=== PATIENT | male | born 1945 | race Caucasian/White ===

== ENCOUNTER 2024-04-13 20:30 | Observation (INO) | payer MEDICARE ==
[~2024-04-13] VITALS: Ht 188 cm; Wt 96.2 kg
[2024-04-13 21:13] LABS: BASO # 0.1 K/mm3 (0.0-0.2); BASO % 1.1 % (0.0-2.0); EOS # 0.2 K/mm3 (0.0-0.7); EOS % 2.6 % (0.0-4.0); GRAN # 5.2 K/mm3 (1.4-6.5); GRAN % 62.2 % (42.2-75.2); HEMATOCRIT 37.4 % (42.0-52.0); HEMOGLOBIN 12.8 g/dl (13.5-18.0); LYMPH # 2.2 K/mm3 (1.2-3.4); LYMPH % 26.1 % (20.0-51.0); MEAN CELL VOLUME 88 fl (80.0-100.0); MEAN CORPUSCULAR HEMOGLOBIN 30 pg (27-31); MEAN CORPUSCULAR HGB CONC 34 g/dl (33.0-37.0); MEAN PLATELET VOLUME 9.9 fl (7.4-10.4); MONO # 0.7 K/mm3 (0.1-0.6); MONO % 7.8 % (1.7-9.3); PLATELET COUNT 288 K/mm3 (130-400); RED BLOOD COUNT 4.24 M/mm3 (4.20-5.60); REDCELL DISTRIBUTION WIDTH-CV 12.9 % (11.5-14.5)
[2024-04-13] MEDS ORDERED: LR 1,000 ML IV ONE ×3 (21:15→23:00)
[2024-04-13 21:27] LABS: ALBUMIN 3.6 g/dL (3.4-4.8); BILIRUBIN,TOTAL 0.7 mg/dL (0.2-1.2); CALCIUM 9.3 mg/dL (8.4-10.2); CREATININE, serum 2.2 mg/dL (0.72-1.25); POTASSIUM 4.1 mEq/L (3.5-4.5); TOTAL PROTEIN 7.5 g/dl (6.2-8.1)
[2024-04-13 21:37] LABS: TROPONIN-I 0.02 ng/mL (0.00-0.033)
[2024-04-13] MEDS ORDERED: Insulin Lispro (HumaLOG) SQ ONE (23:00)
[2024-04-13] MEDS ORDERED: Acetaminophen 325 MG TAB PO PRN (23:00)
[2024-04-13 23:11] LABS: PH 5.5 (5.0-8.5); URINE APPEARANCE CLEAR (CLEAR/HAZY); URINE BLOOD NEGATIVE (NEGATIVE); URINE COLOR YELLOW (YELLOW); URINE GLUCOSE 3+ (NEGATIVE); URINE KETONE NEGATIVE (NEGATIVE); URINE NITRATE NEGATIVE (NEGATIVE); URINE PROTEIN(semi-quant) NEGATIVE (NEGATIVE); URINE UROBILINOGEN 0.2 E.U/dL (0.2-1.0)
[2024-04-13 23:12] LABS: COLLECTION METHOD CLEAN CATCH
[2024-04-13] MEDS ORDERED: Dextrose (Glucose) 15 GM (4 x 3.75 GM) Chewable TABLET PACK PO PRN (23:15)
[2024-04-13] MEDS ORDERED: Dextrose 50% Water 25 GM/50 ML SYRINGE IV PRN (23:15)
[2024-04-13] MEDS ORDERED: Glucagon 1 MG VIAL IM PRN (23:15)
[2024-04-14] VITALS (12 sets, daily range): BP systolic 117–167; BP diastolic 41–89; PULSE 66–91; TEMP 98–99.1
[2024-04-14] MEDS ORDERED: Insulin Lispro (HumaLOG) SQ SCH
[2024-04-14] MEDS ORDERED: DESYREL DIVIDO150 M1 PO (00:09)
[2024-04-14] MEDS ORDERED: ACTOS30 MG PO (00:09)
--- NOTE | 2024-04-14 00:44 | NUR ---
RECIEVED REPORT FROM [facility] MAIN RN. PATIENT ARRIVED TO UNIT AROUND 0030. ALL BELONGINGS WITH PATIENT AT TIME OF TRANSFER. PATIENT AMBULATED TO BED. ORIENTED TO ROOM. CALL LIGHT WITHIN REACH.
[2024-04-14 07:11] LABS: BASO # 0.1 K/mm3 (0.0-0.2); EOS # 0.2 K/mm3 (0.0-0.7); EOS % 3.2 % (0.0-4.0); GRAN # 4.8 K/mm3 (1.4-6.5); GRAN % 65.6 % (42.2-75.2); LYMPH # 1.5 K/mm3 (1.2-3.4); MEAN CELL VOLUME 87 fl (80.0-100.0); MEAN CORPUSCULAR HGB CONC 35 g/dl (33.0-37.0); MEAN PLATELET VOLUME 9.8 fl (7.4-10.4); MONO # 0.7 K/mm3 (0.1-0.6); MONO % 9.8 % (1.7-9.3); PLATELET COUNT 231 K/mm3 (130-400); RED BLOOD COUNT 3.56 M/mm3 (4.20-5.60); REDCELL DISTRIBUTION WIDTH-CV 12.7 % (11.5-14.5)
[2024-04-14 07:12] LABS: HEMATOCRIT 30.9 % (42.0-52.0); HEMOGLOBIN 10.7 g/dl (13.5-18.0); MEAN CORPUSCULAR HEMOGLOBIN 30 pg (27-31)
[2024-04-14 07:26] LABS: CALCIUM 8.6 mg/dL (8.4-10.2); CREATININE, serum 1.63 mg/dL (0.72-1.25); POTASSIUM 3.8 mEq/L (3.5-4.5)
[2024-04-14] MEDS ORDERED: Famotidine 20 MG TAB PO SCH (09:00)
[2024-04-14 10:02] LABS: CALCIUM 8.5 mg/dL (8.4-10.2); CREATININE, serum 1.66 mg/dL (0.72-1.25)
[2024-04-14 10:15] LABS: CHOLESTEROL RISK RATIO 6.1
--- NOTE | 2024-04-14 12:34 | NUR ---
Data: Patient declined spiritual care visit offered during [facility] rounds. Assessment: None. Patient declined. Plan of Care: Chaplains will remain available as requested while Patient is admitted to this hospital.
[2024-04-14 12:51] LABS: CALCIUM 8.8 mg/dL (8.4-10.2); CREATININE, serum 1.7 mg/dL (0.72-1.25); POTASSIUM 3.8 mEq/L (3.5-4.5)
[2024-04-14] MEDS ORDERED: Insulin Glargine-ygfn (Lantus) SQ ONE (13:00)
[2024-04-14] MEDS ORDERED: NS 1,000 ML IV SCH (13:00)
--- NOTE | 2024-04-14 14:21 | NUR ---
INSTRUCTIONAL MANAGER met with pt bedside to complete initial consult. INSTRUCTIONAL MANAGER Ellen attempted to complete consult earlier but was declined. Pt recently moved to [place] from [facility] to be with his son, Wesley. Pt filled out DPOA form who named Wesley as DPOA. Paperwork put in chart and 2 copies were given to pt. Pt has not established PCP nor pharmacy yet. Pt had no preferences for pharmacy. Pt was difficult to speak with and avoided most questions. Pt uses no DME and no assistive devices at home. Pt has no concerns and declined the need for additional resources. D/C: Home w\ son
[2024-04-14 16:18] LABS: CALCIUM 8.7 mg/dL (8.4-10.2); CREATININE, serum 1.94 mg/dL (0.72-1.25); POTASSIUM 4.3 mEq/L (3.5-4.5)
[2024-04-14] MEDS ORDERED: Insulin Lispro (HumaLOG) IV ONE (23:45)
[2024-04-15] VITALS (10 sets, daily range): BP systolic 134–158; BP diastolic 54–72; PULSE 71–87; TEMP 98.4–98.9
--- NOTE | 2024-04-15 05:44 | NUR ---
THE PATIENT REFUSED HIS 4 AM VITALS AND BLOOD GLUCOSE CHECK. ALSO THE PATIENT REFUSED HIS LAB DRAW THIS MORNING WELL. THE PATIENT IS NOT WILLING TO LISTEN TO REASON AT THIS TIME. SIMPLE AND CONCISE REASONING WAS USED AND THE PATIENT ABSOLUTELY REFUSED.
[2024-04-15 07:52] LABS: BASO # 0.1 K/mm3 (0.0-0.2); BASO % 1.3 % (0.0-2.0); EOS # 0.3 K/mm3 (0.0-0.7); EOS % 4.9 % (0.0-4.0); GRAN # 4.1 K/mm3 (1.4-6.5); HEMOGLOBIN 11.2 g/dl (13.5-18.0); LYMPH # 1.7 K/mm3 (1.2-3.4); LYMPH % 24.8 % (20.0-51.0); MEAN CELL VOLUME 88 fl (80.0-100.0); MEAN CORPUSCULAR HEMOGLOBIN 30 pg (27-31); MEAN CORPUSCULAR HGB CONC 35 g/dl (33.0-37.0); MEAN PLATELET VOLUME 9.6 fl (7.4-10.4); MONO # 0.5 K/mm3 (0.1-0.6); MONO % 7.7 % (1.7-9.3); PLATELET COUNT 235 K/mm3 (130-400); REDCELL DISTRIBUTION WIDTH-CV 13.2 % (11.5-14.5)
[2024-04-15 07:57] LABS: HEMATOCRIT 32.5 % (42.0-52.0)
[2024-04-15] MEDS ORDERED: Insulin Glargine-ygfn (Lantus) SQ SCH ×2 (09:00→15:00)
[2024-04-15] MEDS ORDERED: Influenza Virus Vaccine, Hi-Dose Triv '24-25 (65 YR+) 0.5 ML SYRINGE IM SCH (09:00)
--- NOTE | 2024-04-15 09:00 | NUR ---
Patient awake and alert resting in bed. Denies any concerns at this time. Call light left within reach.
--- NOTE | 2024-04-15 23:37 | NUR ---
PT LAYIING IN BED. MEDICATIONS ADMINISTERED PER EMAR. ASSESSMENT COMPLETED. NO COMPLAINTS AT THIS TIME. CALL LIGHT IS WITHIN REACH. BED IS IN LOWEST POSITION.
--- NOTE | 2024-04-16 00:25 | NUR ---
PCT TRIED GETTING VITALS AND BG. PT REFUSED BG AND VITALS. THIS NURSE WAS NOTIFIED. THIS NURSE WENT INTO THE ROOM TO TRY AND GET VITALS AND BG. PT STATES "NO" WE CANNOT GET HIS VITALS NOT HIS BG. THIS NURSE TRIED EDUCATING THE PT ABOUT WHY IT IS IMPORTANT FOR US TO GET HIS BG. THE PT STATES "IT IS NOT IMPORTANT RIGHT NOW" AND "NO" HE IS NOT LETTING US GET HIS VITALS OR HIS BG.
[2024-04-16 01:41] VITALS: BP_SYST 134
--- NOTE | 2024-04-16 03:43 | NUR ---
UNABLE TO GET BG, PT REFUSED BLOOD SUGAR CHECK BY PCT AND NURSE. EDUCATED PT ABOUT IMPORTANCE OF BLOOD SUGAR AND STILL REFUSED.
[2024-04-16] MEDS ORDERED: LANTUS100 U/ML SQ (08:47)
[2024-04-16] MEDS ORDERED: INSULIN AS100 UNIT/3 SQ (08:50)
[2024-04-16] MEDS ORDERED: LIPITOR20 MG PO (08:54)
--- NOTE | 2024-04-16 08:56 | NUR ---
PATIENT REFUSING ALL CARE, REFUSING FOR VS TO BE TAKEN, BLOOD SUGARS TO BE TAKEN OR PHYSICAL ASSESSMENT. REPORTED THIS TO DR. VICTOR.
[2024-04-16] MEDS ORDERED: Famotidine 20 MG TAB PO SCH (09:00)
[2024-04-16] MEDS ORDERED: Influenza Virus Vaccine, Hi-Dose Triv '24-25 (65 YR+) 0.5 ML SYRINGE IM SCH (09:00)
--- NOTE | 2024-04-16 10:39 | NUR ---
PATIENT ALERT AND ORIENTED X4. PATIENT REFUSES ALL CARE TODAY. PATIENT REMINDED OF THE IMPORTANCE OF COMPLIANCE WITH DIABETIC MEDICATIONS/BLOOD SUGAR CHECKS. PATIENT UNDERSTANDS AND WILL CALL FOR NURSE/PCT IF ANY QUESTIONS ARISE.
--- NOTE | 2024-04-16 16:27 | NUR ---
DISCHARGE INSTRUCTIONS PROVIDED. PATIENT DENIES ANY REVIEW OF MEDICATIONS OR DISCHARGE INSTRUCTIONS. IV DC'D. PATIENT REFUSES EDUCATION OR FURTHER DISCUSSION OF FOLLOW UP APPOINTMENTS NEEDED TO STAY COMPLIANT WITH DIABETES MANAGEMENT. PATIENT SIGNED PAPERWORK AND WALKED OFF AFTER YELLING AT THIS NURSE, "I DON'T CARE!" PATIENT LEFT WITH SON.
== END 2024-04-16 16:29 | disposition home or self-care (01) ==
LOC: COL.ER 20:30 → SURG 22:52 → COL.ER 04-14 00:30 → SURG 04-16 16:29
PROVIDERS: Emergency Medicine; Physician Assistant; ADMIT Internal Medicine
DX: E11.65 Type 2 diabetes mellitus with hyperglycemia (principal); N17.9 Acute kidney failure, unspecified; Z87.891 Personal history of nicotine dependence
CPT/HCPCS: G0378; J1815; J7030; J7120